=== PATIENT | female | born 1990 | race Caucasian/White ===

== ENCOUNTER 2017-03-15 15:14 | Day surgery (SDC) | payer BC, OTHER, SELFPAY ==
[2017-03-15] MEDS ORDERED: Sodium Chloride 0.9% 10 ML Syringe FLUSH PRN (16:15)
[2017-03-15] MEDS ORDERED: Ondansetron 4 MG/2 ML SDV IVPUSH ONE ×2 (16:17→18:35)
[2017-03-15] MEDS ORDERED: Iopamidol 755 Mg/ML 75 ML Bottle IV ONE (16:23)
--- NOTE | 2017-03-15 16:34 | EDM.PDOC ---
ED HPI GENERAL MEDICAL PROBLEM - General Chief Complaint: Abdominal Pain Stated Complaint: STOMACH PAINS Time Seen by Provider: 03/15/17 15:14 Source of Information: Reports: Patient, Family (SO) History Limitations: Reports: No Limitations - History of Present Illness INITIAL COMMENTS - FREE TEXT/NARRATIVE: 26 y.o.w.f in prev. health condition, [facility] Feb 20 2017, came to the ed with her SO due to acute RLQ abd. pain at 3 am. it subsided and came back this pm. Pt ate some pizza, which she vomited out out. Pt vomited [employer] as well X 1. It subsided here in the ED. No F/C, no trauma, no prev abd. surgeries. Pt stated she could be . No Dysuria. BP 118/81 Pulse 93 Temp 36.7 RR 18 Pulse ox 98% on RA. Onset: Today Onset Date: 03/15/17 Onset Time: 03:00 Duration: Hour(s):, Getting Worse, Intermittent Location: Reports: Abdomen, Pelvis Quality: Reports: Ache, Dull, Pressure Severity: Moderate Improves with: Reports: Rest Worsens with: Reports: Movement Context: Reports: Other (RLQ abd. pain) Associated Symptoms: Reports: Nausea/Vomiting - Related Data Allergies Allergy/AdvReac Type Severity Reaction Status Date / Time No Known Allergies Allergy Verified 03/15/17 15:30 Home Meds: Home Meds SUMAtriptan 100 mg PO DAILY PRN 03/15/17 [History] Past Medical History HEENT History: Reports: None Neurological History: Reports: Migraines Psychiatric History: Reports: Anxiety, Depression, Suicide Attempt - Infectious Disease History Infectious Disease History: Reports: Chicken Pox - Past Surgical History HEENT Surgical History: Reports: Other (See Below) Other HEENT Surgeries/Procedures: wisdom teeth removed Neurological Surgical History: Reports: None Dermatological Surgical History: Reports: None Social & Family History - Family History Family Medical History: Noncontributory - Tobacco Use Smoking Status *Q: Former Smoker Used Tobacco, but Quit: Yes Month Tobacco Last Used: 5 years Second Hand Smoke Exposure: No - Caffeine Use Caffeine Use: Reports: Coffee, Soda - Alcohol Use Days Per Week of Alcohol Use: 1 Number of Drinks Per Day: 2 Total Drinks Per Week: 2 - Recreational Drug Use Recreational Drug Use: No ED ROS GENERAL - Review of Systems Review Of Systems: See Below Constitutional: Reports: No Symptoms HEENT: Reports: No Symptoms Respiratory: Reports: No Symptoms Cardiovascular: Reports: No Symptoms Endocrine: Reports: No Symptoms GI/Abdominal: Reports: Abdominal Pain (RLQ) : Reports: No Symptoms Musculoskeletal: Reports: No Symptoms Skin: Reports: No Symptoms Neurological: Reports: No Symptoms Psychiatric: Reports: No Symptoms Hematologic/Lymphatic: Reports: No Symptoms Immunologic: Reports: No Symptoms ED EXAM, GI/ABD - Physical Exam Exam: See Below Exam Limited By: No Limitations General Appearance: Alert, WD/WN, Mild Distress Eyes: Bilateral: Normal Appearance Ears: Normal External Exam Nose: Normal Inspection Throat/Mouth: Normal Inspection Head: Atraumatic, Normocephalic Neck: Normal Inspection, Supple, Non-Tender, Full Range of Motion Respiratory/Chest: No Respiratory Distress, Lungs Clear, Normal Breath Sounds, No Accessory Muscle Use, Chest Non-Tender Cardiovascular: Normal Peripheral Pulses, Regular Rate, Rhythm, No Edema, No Gallop, No JVD, No Murmur, No Rub GI/Abdominal Exam: Normal Bowel Sounds, No Organomegaly, Tender (RLQ abd.pain/ tenderness/guarding) (Female) Exam: Deferred Rectal (Female) Exam: Deferred Back Exam: Normal Inspection, Full Range of Motion Extremities: Normal Inspection, Normal Range of Motion, Non-Tender, No Pedal Edema Neurological: Alert, Oriented, CN II-XII Intact, Normal Cognition, Normal Gait Psychiatric: Normal Affect, Normal Mood Skin Exam: Warm, Dry, Intact, Normal Color, No Rash Lymphatic: No Adenopathy Course - Vital Signs Text/Narrative:: 26 y.o.w.f in prev. health condition, [facility] Feb 20 2017, came to the ed with her SO due to acute RLQ abd. pain at 3 am. it subsided and came back this pm. Pt ate some pizza, which she vomited out out. Pt vomited [employer] as well X 1. It subsided here in the ED. No F/C, no trauma, no prev abd. surgeries. Pt stated she could be . No Dysuria. BP 118/81 Pulse 93 Temp 36.7 RR 18 Pulse ox 98% on RA. PE: WNWD very pleasant WF c/o RLQ abd. pain. Labs: CBC showed a WBC of 13.5, BMP was nl HCG neg. UA neg INR 1.02 Imaging: CT abd/pelvis: Acute appy, left ovarian Cyst, hemorrhagic. Impression: Acute appy Tx: Cefoxitin 1 gm i.v. Refused Zofran. refused pain meds. LR 125 cc/hr 5.41 pm Consultation: Dr. Chowdhury, Surgeon: Call crew in for surgery Plan: Appendectomy, then admit to argueta for obs to Dr. hCowdhury Last Recorded V/S: Last Vital Signs Temp 36.9 C 03/15/17 17:12 Pulse 99 03/15/17 17:12 Resp 18 03/15/17 17:12 BP 111/70 03/15/17 17:12 Pulse Ox 100 03/15/17 17:12 - Orders/Labs/Meds Orders: Active Orders 24 hr Category Date Time Status Communication Order [RC] ASDIRECTED Care 03/15/17 18:25 Ordered Cooling Warming Measures [RC] ASDIRECTED Care 03/15/17 18:25 Ordered Notify Provider [RC] PRN Care 03/15/17 18:25 Ordered Oxygen Therapy [RC] ASDIRECTED Care 03/15/17 18:25 Ordered Vital Signs [RC] PER UNIT ROUTINE Care 03/15/17 18:25 Active Abdomen Pelvis w Cont [CT] Stat Exams 03/15/17 16:13 Ordered Albuterol [Proventil Neb Soln] Med 03/15/17 18:24 Ordered 2.5 mg NEB ONETIME PRN HYDROmorphone [Dilaudid] Med 03/15/17 18:24 Ordered 0.2 mg IV Q10M PRN HYDROmorphone [Dilaudid] Med 03/15/17 18:24 Ordered 0.2 mg IVPUSH Q10M PRN Lactated Ringers @ KVO(1000ml) Med 03/15/17 18:30 Ordered Lactated Ringers [Ringers, Lactated] 1,000 ml IV ASDIRECTED Lactated Ringers [Ringers, Lactated] 1,000 ml Med 03/15/17 18:30 Active IV ASDIRECTED Naloxone [Narcan] Med 03/15/17 18:24 Ordered 0.2 mg IVPUSH Q1M PRN Ondansetron [Zofran] Med 03/15/17 18:24 Ordered 4 mg IVPUSH ONETIME PRN Promethazine [Phenergan] Med 03/15/17 18:24 Ordered 12.5 mg IM Q4H PRN Sodium Chloride 0.9% @ 125 MLS/HR (1000ml) Med 03/15/17 18:00 Ordered Sodium Chloride 0.9% [Normal Saline] 1,000 ml IV ASDIRECTED Sodium Chloride 0.9% [Saline Flush] Med 03/15/17 16:15 Active 10 ml FLUSH ASDIRECTED PRN diphenhydrAMINE [Benadryl] Med 03/15/17 18:24 Ordered 25 mg IVPUSH ONETIME PRN fentaNYL [Sublimaze] Med 03/15/17 18:24 Ordered 50 mcg IVPUSH Q5M PRN Patient May [OM.PC] Click to Edit Oth 03/15/17 18:25 Ordered Peripheral IV Insertion Adult [OM.PC] Routine Oth 03/15/17 16:15 Ordered Medication Orders Albuterol (Proventil Neb Soln) 2.5 mg NEB ONETIME PRN PRN Reason: Wheezing Diphenhydramine HCl (Benadryl) 25 mg IVPUSH ONETIME PRN PRN Reason: Itching Fentanyl (Sublimaze) 50 mcg IVPUSH Q5M PRN PRN Reason: Pain (severe 7-10) Hydromorphone HCl (Dilaudid) 0.2 mg IVPUSH Q10M PRN PRN Reason: Pain (moderate 4-6) Hydromorphone HCl (Dilaudid) 0.2 mg IV Q10M PRN PRN Reason: Pain (severe 7-10) Sodium Chloride (Normal Saline) 1,000 mls @ 125 mls/hr IV ASDIRECTED NELLIE Lactated Ringer's (Ringers, Lactated) 1,000 mls @ 125 mls/hr IV ASDIRECTED NELLIE Lactated Ringer's (Ringers, Lactated) 1,000 mls @ 0 mls/hr IV ASDIRECTED NELLIE PRN Reason: KVO Naloxone HCl (Narcan) 0.2 mg IVPUSH Q1M PRN PRN Reason: Respiratory Depression Ondansetron HCl (Zofran) 4 mg IVPUSH ONETIME PRN PRN Reason: Nausea/Vomiting Promethazine HCl (Phenergan) 12.5 mg IM Q4H PRN PRN Reason: Nausea/Vomiting Sodium Chloride (Saline Flush) 10 ml FLUSH ASDIRECTED PRN PRN Reason: Keep Vein Open Labs: Laboratory Tests 03/15/17 03/15/17 03/15/17 Range/Units 15:40 15:40 15:40 WBC 13.5 H (4.5-12.0) X10-3/uL RBC 4.30 (3.23-5.20) x10(6)uL Hgb 14.1 (11.5-15.5) g/dL Hct 40.1 (30.0-51.3) % MCV 93.3 (80-96) fL MCH 32.7 (27.7-33.6) pg MCHC 35.1 (32.2-35.4) g/dL RDW 12.8 (11.5-15.5) % Plt Count 290 (125-369) X10(3)uL MPV 8.3 (7.4-10.4) fL Add Manual Diff Yes Neutrophils % (Manual) 87 H (46-82) % Band Neutrophils % 2 (0-6) % Lymphocytes % (Manual) 6 L (13-37) % Monocytes % (Manual) 5 (4-12) % PT 10.3 (8.7-11.1) INR 1.02 (0.89-1.13) Sodium 138 (135-145) mmol/L Potassium 3.7 (3.5-5.3) mmol/L Chloride 102 (100-110) mmol/L Carbon Dioxide 25 (21-32) mmol/L BUN 13 (7-18) mg/dL Creatinine 0.8 (0.55-1.02) mg/dL Est Cr Clr Drug Dosing TNP Estimated GFR (MDRD) > 60 (>60) BUN/Creatinine Ratio 16.3 (9-20) Glucose 103 (80-116) mg/dL Calcium 9.5 (8.6-10.2) mg/dL Urine Color (YELLOW) Urine Appearance (CLEAR) Urine pH (5.0-6.5) Ur Specific [place] (1.010-1.025) Urine Protein (NEGATIVE) mg/dL Urine Glucose (UA) (NEGATIVE) mg/dL Urine Ketones (NEGATIVE) mg/dL Urine Occult Blood (NEGATIVE) Urine Nitrite (NEGATIVE) Urine Bilirubin (NEGATIVE) Urine Urobilinogen (NEGATIVE) mg/dL Ur Leukocyte Esterase (NEGATIVE) Urine RBC (0) Urine WBC (0) Ur Squamous Epith Cells (NS,R,O) Urine Bacteria (NS) Urine HCG, Qual (NEGATIVE) 03/15/17 03/15/17 Range/Units 15:54 15:54 WBC (4.5-12.0) X10-3/uL RBC (3.23-5.20) x10(6)uL Hgb (11.5-15.5) g/dL Hct (30.0-51.3) % MCV (80-96) fL MCH (27.7-33.6) pg MCHC (32.2-35.4) g/dL RDW (11.5-15.5) % Plt Count (125-369) X10(3)uL MPV (7.4-10.4) fL Add Manual Diff Neutrophils % (Manual) (46-82) % Band Neutrophils % (0-6) % Lymphocytes % (Manual) (13-37) % Monocytes % (Manual) (4-12) % PT (8.7-11.1) INR (0.89-1.13) Sodium (135-145) mmol/L Potassium (3.5-5.3) mmol/L Chloride (100-110) mmol/L Carbon Dioxide (21-32) mmol/L BUN (7-18) mg/dL Creatinine (0.55-1.02) mg/dL Est Cr Clr Drug Dosing Estimated GFR (MDRD) (>60) BUN/Creatinine Ratio (9-20) Glucose (80-116) mg/dL Calcium (8.6-10.2) mg/dL Urine Color Yellow (YELLOW) Urine Appearance Clear (CLEAR) Urine pH 8.0 H (5.0-6.5) Ur Specific [place] 1.010 (1.010-1.025) Urine Protein Negative (NEGATIVE) mg/dL Urine Glucose (UA) Normal (NEGATIVE) mg/dL Urine Ketones Negative (NEGATIVE) mg/dL Urine Occult Blood Negative (NEGATIVE) Urine Nitrite Negative (NEGATIVE) Urine Bilirubin Negative (NEGATIVE) Urine Urobilinogen Normal (NEGATIVE) mg/dL Ur Leukocyte Esterase Negative (NEGATIVE) Urine RBC 0-5 (0) Urine WBC 0-5 (0) Ur Squamous Epith Cells Occasional (NS,R,O) Urine Bacteria Few H (NS) Urine HCG, Qual Negative (NEGATIVE) Meds: Medications Generic Name Dose Route Start Last Admin Trade Name Freq PRN Reason Stop Dose Admin Albuterol 2.5 mg 03/15/17 18:24 Proventil Neb Soln NEB ONETIME PRN Wheezing Diphenhydramine HCl 25 mg 03/15/17 18:24 Benadryl IVPUSH ONETIME PRN Itching Fentanyl 50 mcg 03/15/17 18:24 Sublimaze IVPUSH Q5M PRN Pain (severe 7-10) Hydromorphone HCl 0.2 mg 03/15/17 18:24 Dilaudid IVPUSH Q10M PRN Pain (moderate 4-6) Hydromorphone HCl 0.2 mg 03/15/17 18:24 Dilaudid IV Q10M PRN Pain (severe 7-10) Sodium Chloride 1,000 mls @ 125 mls/hr 03/15/17 18:00 Normal Saline IV ASDIRECTED NELLIE Lactated Ringer's 1,000 mls @ 125 mls/hr 03/15/17 18:30 Ringers, Lactated IV ASDIRECTED NELLIE Lactated Ringer's 1,000 mls @ 0 mls/hr 03/15/17 18:30 Ringers, Lactated IV ASDIRECTED NELLIE KVO Naloxone HCl 0.2 mg 03/15/17 18:24 Narcan IVPUSH Q1M PRN Respiratory Depression Ondansetron HCl 4 mg 03/15/17 18:24 Zofran IVPUSH ONETIME PRN Nausea/Vomiting Promethazine HCl 12.5 mg 03/15/17 18:24 Phenergan IM Q4H PRN Nausea/Vomiting Sodium Chloride 10 ml 03/15/17 16:15 Saline Flush FLUSH ASDIRECTED PRN Keep Vein Open Discontinued Medications Generic Name Dose Route Start Last Admin Trade Name Freq PRN Reason Stop Dose Admin Piperacillin Sod/Tazobactam 50 mls @ 100 mls/hr 03/15/17 17:45 Sod 3.375 gm/ Sodium Chloride IV Q6H NELLIE Cefoxitin Sodium 1 gm/ Premix 50 mls @ 100 mls/hr 03/15/17 17:54 03/15/17 18: 30 IV 03/15/17 18:23 100 mls/hr ONETIME ONE Administration Cefoxitin Sodium Confirm 03/15/17 17:58 03/15/17 18:16 Mefoxin In Dextrose,Iso-Osm 1 Gm/50 Ml Administered 03/15/17 17:59 Not Given Dose 50 mls @ as directed .ROUTE .STK-MED ONE Iopamidol 60 ml 03/15/17 16:23 03/15/17 16:51 Isovue-370 (76%) IV 03/15/17 16:24 60 ml ONETIME ONE Administration Ondansetron HCl 8 mg 03/15/17 16:17 03/15/17 17:16 Zofran IVPUSH 03/15/17 16:18 Not Given ONETIME ONE Departure - Departure Time of Disposition: 18:37 Disposition: Refer to Observation Condition: Fair Clinical Impression: S/P laparoscopic appendectomy - Discharge Information - My Orders Last 24 Hours: My Active Orders 03/15/17 16:13 Abdomen Pelvis w Cont [CT] Stat 03/15/17 16:15 Sodium Chloride 0.9% [Saline Flush] 10 ml FLUSH ASDIRECTED PRN Peripheral IV Insertion Adult [OM.PC] Routine 03/15/17 18:00 Sodium Chloride 0.9% @ 125 MLS/HR (1000ml) Sodium Chloride 0.9% [Normal Saline] 1,000 ml IV ASDIRECTED 03/15/17 18:30 Lactated Ringers [Ringers, Lactated] 1,000 ml IV ASDIRECTED - Assessment/Plan Last 24 Hours: My Active Orders 03/15/17 16:13 Abdomen Pelvis w Cont [CT] Stat 03/15/17 16:15 Sodium Chloride 0.9% [Saline Flush] 10 ml FLUSH ASDIRECTED PRN Peripheral IV Insertion Adult [OM.PC] Routine 03/15/17 18:00 Sodium Chloride 0.9% @ 125 MLS/HR (1000ml) Sodium Chloride 0.9% [Normal Saline] 1,000 ml IV ASDIRECTED 03/15/17 18:30 Lactated Ringers [Ringers, Lactated] 1,000 ml IV ASDIRECTED
[2017-03-15] MEDS ORDERED: Piperacillin/Tazobactam 3.375 GM in Sodium Chloride 0.9% 50 ML IV SCH (17:45)
[2017-03-15] MEDS ORDERED: cefOXitin 1 GM in Premix Bag 1 BAG IV ONE (17:54)
[2017-03-15] MEDS ORDERED: Sodium Chloride 0.9% 1,000 ML IV SCH (18:00)
[2017-03-15] MEDS ORDERED: Promethazine 25 MG/ML SDV IM PRN (18:24)
[2017-03-15] MEDS ORDERED: fentaNYL 100 MCG/2 ML SDV IVPUSH PRN (18:24)
[2017-03-15] MEDS ORDERED: Albuterol 0.083% 2.5 MG/3 ML Neb Soln NEB PRN (18:24)
[2017-03-15] MEDS ORDERED: HYDROmorphone 2 MG/ML SDV IV PRN (18:24)
[2017-03-15] MEDS ORDERED: diphenhydrAMINE 50 MG/ML SDV IVPUSH PRN (18:24)
[2017-03-15] MEDS ORDERED: HYDROmorphone 2 MG/ML SDV IVPUSH PRN (18:24)
[2017-03-15] MEDS ORDERED: Ondansetron 4 MG/2 ML SDV IVPUSH PRN ×2 (18:24→19:31)
[2017-03-15] MEDS ORDERED: Naloxone 0.4 MG/ML SDV IVPUSH PRN (18:24)
[2017-03-15] MEDS ORDERED: Lactated Ringers 1,000 ML IV SCH ×3 (18:30→19:45)
[2017-03-15] MEDS ORDERED: Dexamethasone 4 MG/ML 5 ML MDV IVPUSH ONE (18:35)
[2017-03-15] MEDS ORDERED: Ketorolac 30 MG/ML SDV IVPUSH ONE (18:35)
[2017-03-15] MEDS ORDERED: Midazolam 1 MG/ML 2 ML SDV IV ONE (18:35)
[2017-03-15] MEDS ORDERED: Rocuronium 100 MG/10 ML MDV IV ONE (18:35)
[2017-03-15] MEDS ORDERED: ceFAZolin 1 GM Vial IV ONE (18:35)
[2017-03-15] MEDS ORDERED: Succinylcholine 200 MG/10 ML MDV IV ONE (18:35)
[2017-03-15] MEDS ORDERED: Neostigmine Methylsulfate 10 MG/10 ML MDV IVPUSH ONE (18:35)
[2017-03-15] MEDS ORDERED: Propofol 200 MG/20 ML SDV IV ONE (18:35)
[2017-03-15] MEDS ORDERED: Lactated Ringers 1,000 ML IV ONE (18:35)
[2017-03-15] MEDS ORDERED: fentaNYL 100 MCG/2 ML SDV IV ONE (18:35)
[2017-03-15] MEDS ORDERED: HYDROmorphone 2 MG/ML SDV IV ONE (18:35)
[2017-03-15] MEDS ORDERED: Bupivacaine 0.5%/EPINEPHrine 1:200,000 50 ML MDV ONE (18:52)
[2017-03-15] MEDS ORDERED: Morphine 2 MG/ML Syringe IVPUSH PRN (19:31)
[2017-03-15] MEDS ORDERED: Acetaminophen/HYDROcodone 325-5 MG Tab PO PRN ×2 (19:31)
--- NOTE | 2017-03-15 19:31 | PCM.OPNOTE ---
- General Post-Op/Procedure Note Date of Surgery/Procedure: 03/15/17 Operative Procedure(s): Appendectomy Findings: Acutely inflamed but not ruptured appendix Pre Op Diagnosis: Acute Appendicitis Post-Op Diagnosis: Same Anesthesia Technique: General ET Tube Primary Surgeon: Pieter Chowdhury Pathology: Appendix Output, Urine Amount: 0 EBL in mLs: 25 Complications: None Condition: Fair
--- NOTE | 2017-03-15 23:11 | ER ---
DATE OF CONSULTATION: 03/15/2017 HISTORY OF PRESENT ILLNESS: This 26-year-old female presents to the emergency room today with persistent abdominal pain. She states this pain began approximately 0330 this morning. It was across her mid abdomen, slightly more on the right side than the left. It has persisted and gradually intensified throughout the day remaining generally in that same location. She has had associated with this 2 episodes of vomiting. The pain intensified to the point where she presented to the emergency room for evaluation. While in the emergency room, investigation has identified laboratory studies showing an elevated serum white blood cell count of 13,500 with 87% segs and 2% bands. Her urinalysis is unremarkable. Her urine test is negative. The patient also underwent a CT scan of the abdomen and this was interpreted as showing findings consistent with acute appendicitis without abscess or evidence of perforation. PAST MEDICAL HISTORY: The patient's past medical history notes only previous surgery was wisdom teeth removal performed under local anesthesia. MEDICATIONS: She is currently only taking sumatriptan p.r.n. for migraine headaches, although she has been on some other medication for anxiety and depression in the recent past. She stopped these about 2 weeks ago since she is trying to become . ALLERGIES: She has no known drug allergies. FAMILY HISTORY: Negative for any known anesthetic complications or bleeding disorders. 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 REVIEW OF SYSTEMS: On system review, she notes mild intermittent sore throat over the last month, but has not had any severe cough, cold, or other sore throat symptoms. She has not had chest pain or palpitations. No difficulty voiding. Her last menstrual period was in the early part of February and she says it was a normal for her. As noted, she has been trying to become recently. She notes some arthritic pain in her neck, but otherwise does not suffer from a lot of arthritis pain or extremity pain or swelling. PHYSICAL EXAMINATION: VITAL SIGNS: Temperature is 98.5, pulse 99, blood pressure is 111/70. The patient's stated weight is 117 pounds. GENERAL: She is an adult female. She is currently in no acute distress. HEENT: Her head is normocephalic. There is no scleral icterus. NECK: Her neck is supple. I do not feel any cervical masses or cervical lymphadenopathy. No thyroid enlargement or nodularity. No carotid bruits are heard. HEART: Her heart is regular without murmur. LUNGS: Clear. Breath sounds are equal. There is no wheezing. She has no CVA tenderness to percussion. ABDOMEN: Her abdomen is currently soft without distention. I do not feel any abdominal masses, but the patient has mild generalized tenderness and moderate tenderness to direct palpation in the right lower quadrant with some mild guarding. EXTREMITIES: Show no calf tenderness or ankle edema. NEUROLOGIC: Grossly normal. IMPRESSION: Acute appendicitis. PLAN: The patient will be admitted for laparoscopic appendectomy. I have discussed the proposed operative procedure with the patient. I reviewed with her indications, risks, and possible complications such as but not limited to bleeding, infection, organ injury, and other diagnoses. The anticipated postop restrictions are reviewed and alternatives of surgery were also discussed. She appears to understand and agrees to proceed. /[id number] ABDI/VASHTI
--- NOTE | 2017-03-16 00:40 | OR ---
DATE OF OPERATION: 03/15/2017 SURGEON: Pieter Chowdhury MD PREOPERATIVE DIAGNOSIS: Acute appendicitis. POSTOPERATIVE DIAGNOSIS: Acute appendicitis. OPERATION PERFORMED: Laparoscopic appendectomy. INDICATIONS FOR SURGERY: This 26-year-old female presented with a greater than 12-hour history of abdominal pain. She had tenderness on abdominal exam in the right lower quadrant, and elevated serum and white blood cell count, and CT scan findings consistent with acute appendicitis. FINDINGS: The patient's appendix was acutely inflamed. It was indurated and dilated along its entire length. There was some hyperemia of the appendix near its junction with the cecum and a small amount of exudate in this area, but there was no evidence of perforation and the adjacent cecum appeared normal. No other abnormalities were noted on intraabdominal examination. There was no indication of appendiceal perforation. PROCEDURE IN DETAIL: The patient was taken to the operating room. She was given general endotracheal anesthesia and the abdomen was sterilely prepped and draped. An infraumbilical stab wound incision was made. Through this, a Veress needle was inserted and pneumoperitoneum via this needle to a pressure of 15 mmHg was achieved with carbon dioxide. The Veress needle was then replaced with a 5 mm trocar, into which a 5 mm variable angled laparoscopic camera was inserted. Under direct visualization, a 12 mm trocar was placed in the suprapubic midline and another 5 mm trocar was placed in the right lower quadrant. All trocar sites were infiltrated with Marcaine prior to incision. Intraabdominal and pelvic inspection was carried out and then attention was turned to the appendix. It was exposed and then secured with grasping forceps. Blunt dissection was then used to create a small window in the mesoappendix adjacent to the cecum. Utilizing this window, an Endo-RAGHAV with 2.5 mm staple length was then fired across the appendiceal cecal junction. This divided the appendix from the cecum. Careful inspection of the cecal staple line showed it to be intact and of good quality. An additional firing of the stapler with the same staple length was then carried out across the mesoappendix. This completely freed the appendix, which was then placed into an Endo retrieval bag and extracted through the largest trocar site. Reinspection of the operative region was performed. Copious irrigation of this area was carried out and careful inspection showed no sign of any bleeding or any other complication. The pneumoperitoneum was then evacuated and the trocars were removed under direct visualization. The fascia of the largest trocar site was closed with a [id number] Vicryl suture. Wounds were irrigated with Betadine and saline solution. Skin incisions were approximated with interrupted 4-0 Vicryl in a subcuticular stitch. Steri-Strips and benzoin were then applied. Antibiotic ointment and sterile dressings were placed. The patient was awakened, extubated, and taken from the operating room in satisfactory condition. ESTIMATED BLOOD LOSS: 25 mL. COMPLICATIONS: None. PROGNOSIS: Good. /[id number] ABDI/VASHTI
[2017-03-16] MEDS: cefOXitin 1 GM in Premix Bag 1 BAG IV SCH ×3 (05:56)
--- NOTE | 2017-03-16 06:48 | PCM.SURGPN ---
- General Info Date of Service: 03/16/17 Date of Surgery/Procedure: 03/15/17 POD#: 1 Post-Op Diagnosis: Acute Appendicitis Functional Status: Reports: Pain Controlled - Review of Systems General: Denies: Fever Pulmonary: Reports: No Symptoms Gastrointestinal: Denies: Nausea, Vomiting - Patient Data Vitals - Most Recent: Last Vital Signs Temp 98.0 F 03/16/17 04:00 Pulse 93 03/16/17 04:00 Resp 16 03/16/17 04:00 BP 90/56 L 03/16/17 04:00 Pulse Ox 97 03/16/17 04:00 Weight - Most Recent: 117 lb I&O - Last 24 Hours: Intake & Output 03/15/17 03/15/17 03/16/17 14:59 22:59 06:59 Intake Total 1290 Output Total 200 300 Balance -200 990 Lab Results Last 24 Hrs: Laboratory Results - last 24 hr 03/15/17 03/15/17 03/15/17 Range/Units 15:40 15:40 15:40 WBC 13.5 H (4.5-12.0) X10-3/uL RBC 4.30 (3.23-5.20) x10(6)uL Hgb 14.1 (11.5-15.5) g/dL Hct 40.1 (30.0-51.3) % MCV 93.3 (80-96) fL MCH 32.7 (27.7-33.6) pg MCHC 35.1 (32.2-35.4) g/dL RDW 12.8 (11.5-15.5) % Plt Count 290 (125-369) X10(3)uL MPV 8.3 (7.4-10.4) fL Add Manual Diff Yes Neutrophils % (Manual) 87 H (46-82) % Band Neutrophils % 2 (0-6) % Lymphocytes % (Manual) 6 L (13-37) % Monocytes % (Manual) 5 (4-12) % PT 10.3 (8.7-11.1) INR 1.02 (0.89-1.13) Sodium 138 (135-145) mmol/L Potassium 3.7 (3.5-5.3) mmol/L Chloride 102 (100-110) mmol/L Carbon Dioxide 25 (21-32) mmol/L BUN 13 (7-18) mg/dL Creatinine 0.8 (0.55-1.02) mg/dL Est Cr Clr Drug Dosing TNP Estimated GFR (MDRD) > 60 (>60) BUN/Creatinine Ratio 16.3 (9-20) Glucose 103 (80-116) mg/dL Calcium 9.5 (8.6-10.2) mg/dL Urine Color (YELLOW) Urine Appearance (CLEAR) Urine pH (5.0-6.5) Ur Specific [place] (1.010-1.025) Urine Protein (NEGATIVE) mg/dL Urine Glucose (UA) (NEGATIVE) mg/dL Urine Ketones (NEGATIVE) mg/dL Urine Occult Blood (NEGATIVE) Urine Nitrite (NEGATIVE) Urine Bilirubin (NEGATIVE) Urine Urobilinogen (NEGATIVE) mg/dL Ur Leukocyte Esterase (NEGATIVE) Urine RBC (0) Urine WBC (0) Ur Squamous Epith Cells (NS,R,O) Urine Bacteria (NS) Urine HCG, Qual (NEGATIVE) 03/15/17 03/15/17 Range/Units 15:54 15:54 WBC (4.5-12.0) X10-3/uL RBC (3.23-5.20) x10(6)uL Hgb (11.5-15.5) g/dL Hct (30.0-51.3) % MCV (80-96) fL MCH (27.7-33.6) pg MCHC (32.2-35.4) g/dL RDW (11.5-15.5) % Plt Count (125-369) X10(3)uL MPV (7.4-10.4) fL Add Manual Diff Neutrophils % (Manual) (46-82) % Band Neutrophils % (0-6) % Lymphocytes % (Manual) (13-37) % Monocytes % (Manual) (4-12) % PT (8.7-11.1) INR (0.89-1.13) Sodium (135-145) mmol/L Potassium (3.5-5.3) mmol/L Chloride (100-110) mmol/L Carbon Dioxide (21-32) mmol/L BUN (7-18) mg/dL Creatinine (0.55-1.02) mg/dL Est Cr Clr Drug Dosing Estimated GFR (MDRD) (>60) BUN/Creatinine Ratio (9-20) Glucose (80-116) mg/dL Calcium (8.6-10.2) mg/dL Urine Color Yellow (YELLOW) Urine Appearance Clear (CLEAR) Urine pH 8.0 H (5.0-6.5) Ur Specific [place] 1.010 (1.010-1.025) Urine Protein Negative (NEGATIVE) mg/dL Urine Glucose (UA) Normal (NEGATIVE) mg/dL Urine Ketones Negative (NEGATIVE) mg/dL Urine Occult Blood Negative (NEGATIVE) Urine Nitrite Negative (NEGATIVE) Urine Bilirubin Negative (NEGATIVE) Urine Urobilinogen Normal (NEGATIVE) mg/dL Ur Leukocyte Esterase Negative (NEGATIVE) Urine RBC 0-5 (0) Urine WBC 0-5 (0) Ur Squamous Epith Cells Occasional (NS,R,O) Urine Bacteria Few H (NS) Urine HCG, Qual Negative (NEGATIVE) Med Orders - Current: Current Medications Hydrocodone Bitart/Acetaminophen ([place] 325-5 Mg) 1 tab PO Q4H PRN PRN Reason: Pain (mild 1-3) Hydrocodone Bitart/Acetaminophen ([place] 325-5 Mg) 2 tab PO Q4H PRN PRN Reason: Pain (moderate 4-6) Cefoxitin Sodium 1 gm/ Premix 50 mls @ 100 mls/hr IV Q6H [facility] Last Admin: 03/16/17 05:56 Dose: 100 mls/hr Lactated Ringer's (Ringers, Lactated) 1,000 mls @ 100 mls/hr IV ASDIRECTED [facility] Last Admin: 03/16/17 00:01 Dose: 100 mls/hr Morphine Sulfate (Morphine) 2 mg IVPUSH Q1H PRN PRN Reason: Pain (severe 7-10) Ondansetron HCl (Zofran) 4 mg IVPUSH Q6H PRN PRN Reason: Nausea/Vomiting Sodium Chloride (Saline Flush) 10 ml FLUSH ASDIRECTED PRN PRN Reason: Keep Vein Open Discontinued Medications Albuterol (Proventil Neb Soln) 2.5 mg NEB ONETIME PRN PRN Reason: Wheezing Bupivacaine HCl/Epinephrine Bitart (Marcaine 0.5%/Epinephrine 1:200,000) 20 ml .XX .STK-MED ONE Stop: 03/15/17 18:53 Last Admin: 03/15/17 18:52 Dose: 20 ml Diphenhydramine HCl (Benadryl) 25 mg IVPUSH ONETIME PRN PRN Reason: Itching Fentanyl (Sublimaze) 50 mcg IVPUSH Q5M PRN PRN Reason: Pain (severe 7-10) Hydromorphone HCl (Dilaudid) 0.2 mg IVPUSH Q10M PRN PRN Reason: Pain (moderate 4-6) Hydromorphone HCl (Dilaudid) 0.2 mg IV Q10M PRN PRN Reason: Pain (severe 7-10) Piperacillin Sod/Tazobactam (Sod 3.375 gm/ Sodium Chloride) 50 mls @ 100 mls/ hr IV Q6H [facility] Last Admin: 03/15/17 18:52 Dose: Not Given Sodium Chloride (Normal Saline) 1,000 mls @ 125 mls/hr IV ASDIRECTED [facility] Cefoxitin Sodium 1 gm/ Premix 50 mls @ 100 mls/hr IV ONETIME ONE Stop: 03/15/17 18:23 Last Admin: 03/15/17 18:30 Dose: 100 mls/hr Cefoxitin Sodium (Mefoxin In Dextrose,Iso-Osm 1 Gm/50 Ml) Confirm Administered Dose 50 mls @ as directed .ROUTE .STK-MED ONE Stop: 03/15/17 17:59 Last Admin: 03/15/17 18:16 Dose: Not Given Lactated Ringer's (Ringers, Lactated) 1,000 mls @ 125 mls/hr IV ASDIRECTED [facility] Last Admin: 03/15/17 18:30 Dose: 125 mls/hr Lactated Ringer's (Ringers, Lactated) 1,000 mls @ 0 mls/hr IV ASDIRECTED [facility] PRN Reason: KVO Iopamidol (Isovue-370 (76%)) 60 ml IV ONETIME ONE Stop: 03/15/17 16:24 Last Admin: 03/15/17 16:51 Dose: 60 ml Naloxone HCl (Narcan) 0.2 mg IVPUSH Q1M PRN PRN Reason: Respiratory Depression Ondansetron HCl (Zofran) 8 mg IVPUSH ONETIME ONE Stop: 03/15/17 16:18 Last Admin: 03/15/17 17:16 Dose: Not Given Ondansetron HCl (Zofran) 4 mg IVPUSH ONETIME PRN PRN Reason: Nausea/Vomiting Promethazine HCl (Phenergan) 12.5 mg IM Q4H PRN PRN Reason: Nausea/Vomiting - Exam Wound/Incisions: Healing Well. No: Erythema General: Alert, Oriented GI/Abdominal Exam: Soft. No: Distended Extremities: Non-Tender - Problem List Review Problem List Initiated/Reviewed/Updated: Yes - My Orders Last 24 Hours: Active Orders 24 hr Category Date Time Status Patient Status [ADT] Routine ADT 03/15/17 19:31 Active Antiembolic Devices [RC] .Routine Care 03/15/17 19:34 Active Communication Order [RC] ASDIRECTED Care 03/15/17 18:25 Inactive Cooling Warming Measures [RC] ASDIRECTED Care 03/15/17 18:25 Inactive Intake and Output [RC] 06,14,22 Care 03/15/17 19:32 Active Notify Provider [RC] PRN Care 03/15/17 18:25 Active Oxygen Therapy [RC] ASDIRECTED Care 03/15/17 18:25 Inactive Oxygen Therapy [RC] PRN Care 03/15/17 19:31 Active RT Incentive Spirometry [RC] Q1HWA Care 03/15/17 19:31 Active Up ad Ksenia [RC] ASDIRECTED Care 03/15/17 19:31 Active Vital Signs [RC] PER UNIT ROUTINE Care 03/15/17 18:25 Inactive Vital Signs [RC] PER UNIT ROUTINE Care 03/15/17 19:31 Active Clear Liquid Diet [DIET] Diet 03/15/17 Breakfast Ordered Abdomen Pelvis w Cont [CT] Stat Exams 03/15/17 16:13 Taken Acetaminophen/HYDROcodone [[place] 325-5 MG] Med 03/15/17 19:31 Active 1 tab PO Q4H PRN Acetaminophen/HYDROcodone [[place] 325-5 MG] Med 03/15/17 19:31 Active 2 tab PO Q4H PRN Lactated Ringers [Ringers, Lactated] 1,000 ml Med 03/15/17 19:45 Active IV ASDIRECTED Morphine Med 03/15/17 19:31 Active 2 mg IVPUSH Q1H PRN Ondansetron [Zofran] Med 03/15/17 19:31 Active 4 mg IVPUSH Q6H PRN Sodium Chloride 0.9% [Saline Flush] Med 03/15/17 16:15 Active 10 ml FLUSH ASDIRECTED PRN cefOXitin [Mefoxin in Dextrose,Iso-Osm 1 GM/50 ML] 1 gm Med 03/16/17 00:00 Active Premix Bag 1 bag IV Q6H DVT/VTE Prophylaxis Reflex [OM.PC] Per Unit Routine Oth 03/15/17 19:34 Ordered Peripheral IV Insertion Adult [OM.PC] Routine Oth 03/15/17 16:15 Ordered Resuscitation Status Routine Resus Stat 03/15/17 19:31 Ordered Medication Orders Hydrocodone Bitart/Acetaminophen ([place] 325-5 Mg) 1 tab PO Q4H PRN PRN Reason: Pain (mild 1-3) Hydrocodone Bitart/Acetaminophen ([place] 325-5 Mg) 2 tab PO Q4H PRN PRN Reason: Pain (moderate 4-6) Cefoxitin Sodium 1 gm/ Premix 50 mls @ 100 mls/hr IV Q6H [facility] Last Admin: 03/16/17 05:56 Dose: 100 mls/hr Infusion: 03/16/17 00:30 Dose: 100 mls/hr Admin: 03/16/17 00:00 Dose: 100 mls/hr Lactated Ringer's (Ringers, Lactated) 1,000 mls @ 100 mls/hr IV ASDIRECTED [facility] Last Admin: 03/16/17 00:01 Dose: 100 mls/hr Morphine Sulfate (Morphine) 2 mg IVPUSH Q1H PRN PRN Reason: Pain (severe 7-10) Ondansetron HCl (Zofran) 4 mg IVPUSH Q6H PRN PRN Reason: Nausea/Vomiting Sodium Chloride (Saline Flush) 10 ml FLUSH ASDIRECTED PRN PRN Reason: Keep Vein Open - Assessment Assessment (Free Text/Narrative):: POD#1 Appendectomy doing well - Plan Plan (Free Text/Narrative):: Give light food this am and if does well then will go home Rx Hydrocodone for pain No heavy lifting for 3 weeks
[2017-03-16] MEDS ORDERED: SUMAtriptan 50 MG Tab PO PRN (09:00)
== END 2017-03-16 11:25 | disposition home or self-care (01) ==
LOC: FB.ED 15:14 → FB.SDS 17:45 → FB.MS 20:13 → FB.SDS 03-16 11:25
PROVIDERS: ATTEND Surgery
DX: K35.80 Unspecified acute appendicitis (principal); G43.909 Migraine, unspecified, not intractable, without status migrainosus; F41.9 Anxiety disorder, unspecified; F32.9 Major depressive disorder, single episode, unspecified; Z91.5 Personal history of self-harm; Z87.891 Personal history of nicotine dependence; Z79.899 Other long term (current) drug therapy
CPT/HCPCS: 36415; 44970; 74177; 80048; 81001; 81025; 85025; 85610; 88304; 96374; 99285; A9270; J0330; J0690; J0694; J1100; J1170; J1885; J2250; J2405; J2704; J2710; J3010; J7120; Q9967

== ENCOUNTER 2017-04-01 20:41 | Emergency (ER) | payer BC ==
--- NOTE | 2017-04-02 10:59 | ER ---
DATE SEEN: 04/01/2017 TIME SEEN: The patient was seen at 2225 hours. HISTORY OF PRESENT ILLNESS: This 26-year-old 3, para 2-0-0-2, with 5 to 6 weeks' gestation, started spotting this morning. She had intercourse yesterday. Spotting is slightly worse this evening. She denies fever, chills, cough, shortness of breath, or leg pain. She has pelvic pressure. She denies frequency, urgency, or dysuria. Denies GI symptoms of nausea, vomiting, diarrhea, constipation, or blood in the stool. No history of thyroid disease. REVIEW OF SYSTEMS: Negative except as noted above. PHYSICAL EXAMINATION: VITAL SIGNS: Blood pressure 127/80, heart rate 96, respirations 20, oxygen saturation 100%. Weight 54.43 kg. BMI is 22.7 kg/m2. GENERAL: Alert woman, in mild distress, with more anxiety. HEENT: PERRLA intact. Pharynx without abnormality. No thyromegaly. LUNGS: Clear without rales, rhonchi, or wheezes. HEART: S1, S2. No irregularity of rhythm. ABDOMEN: Soft, mild suprapubic discomfort, not extensive. No masses palpable. PELVIC: With clinical nurse therapist's assistant present, pelvic exam was performed. She has mild spotting of blood at the introitus. Parous introitus. Inspection of the cervix suggests a small amount of tissue at the os, 4 mm x 8 mm, but not protruding. heart tone was not seen, gestation sac was not seen on quick- look ultrasound. Uterus appeared to be slightly enlarged. Serum hCG is 1169, which is equivalent to 4 to 5 weeks' gestation. She will need to have that repeated in 2 days to discern if there is any loss of viability, i.e., drop in the hCG. No plans to intervene with any medicine. No suggestion of urinary tract infection, has rare bacteria with 100 rbc's in the urine; the latter is secondary to vaginal bleeding. DIAGNOSIS: First trimester bleed. PLAN: The patient is dismissed to follow up with doctor in 2 days to get a urine hCG. Otherwise, follow up with a doctor next week. /[id number] RON/VASHTI DELGADOD
== END 2017-04-01 23:15 | disposition home or self-care (01) ==
LOC: FB.ED 20:41
DX: O26.851 Spotting complicating pregnancy, first trimester (principal); Z3A.01 Less than 8 weeks gestation of pregnancy
CPT/HCPCS: 36415; 81001; 84702; 99282

== ENCOUNTER 2017-12-31 06:37 | Inpatient (IN) | payer BC ==
[2017-12-31] MEDS ORDERED: Sodium Chloride 0.9% 10 ML Syringe FLUSH PRN (07:48)
[2017-12-31] MEDS: Lactated Ringers 1,000 ML IV SCH ×3 (08:14→16:01)
[2017-12-31] MEDS ORDERED: Morphine PF 10 MG/10 ML SDV ONE (09:12)
[2017-12-31] MEDS ORDERED: Bupivacaine 0.75%/D5W 2 ML Amp ISPINAL ONE (09:12)
[2017-12-31] MEDS ORDERED: fentaNYL 100 MCG/2 ML SDV ITHECAL ONE (09:12)
[2017-12-31] MEDS ORDERED: EPINEPHrine 1 MG/ML SDV IV ONE (09:12)
[2017-12-31] MEDS ORDERED: Scopolamine 1.5 MG Transdermal Patch ONE (09:17)
[2017-12-31] MEDS ORDERED: Ondansetron 4 MG/2 ML SDV IVPUSH PRN (09:38)
[2017-12-31] MEDS ORDERED: Naloxone 0.4 MG/ML SDV IVPUSH PRN (09:38)
[2017-12-31] MEDS ORDERED: diphenhydrAMINE 50 MG/ML SDV IV PRN (09:38)
[2017-12-31] MEDS ORDERED: ePHEDrine 50 MG/ML SDV IVPUSH PRN (09:38)
[2017-12-31] MEDS ORDERED: Scopolamine 1.5 MG Transdermal Patch TOP ONE ×2 (09:38→09:39)
[2017-12-31] MEDS ORDERED: diphenhydrAMINE 50 MG/ML SDV IVPUSH PRN (09:38)
[2017-12-31] MEDS ORDERED: Famotidine/Normal Saline 20 MG in Premix Bag 1 BAG IV PRN (09:38)
[2017-12-31] MEDS ORDERED: Promethazine 6.25 MG in Sodium Chloride 0.9% 50 ML IV PRN (09:38)
[2017-12-31] MEDS ORDERED: Promethazine 12.5 MG in Sodium Chloride 0.9% 50 ML IV PRN (09:38)
[2017-12-31] MEDS ORDERED: Nalbuphine 10 MG/1 ML Vial IVPUSH PRN (09:38)
[2017-12-31] MEDS ORDERED: Naltrexone 50 MG Tab PO PRN (09:38)
[2017-12-31] MEDS ORDERED: Lactated Ringers 500 ML IV SCH ×2 (09:45)
--- NOTE | 2017-12-31 09:58 | PCM.SN ---
- Free Text/Narrative Note: Subjective-This a 27-year-old G3 para 2 EDC of 12/23/17 which measured 39 weeks 1 /7 days. Comes in in labor. Group B negative. Objective-Pilar tones are reactive. Cervix is 6/100/-1 Assessment multipara in active labor Plan-she was given an intrathecal. After that did AROM with clear fluids. Anticipate vaginal delivery.
[2017-12-31] MEDS ORDERED: SUMAtriptan 50 MG Tab PO PRN (10:56)
[2017-12-31] MEDS ORDERED: Acetaminophen/Codeine 300-30 MG Tab PO PRN (10:57)
--- NOTE | 2017-12-31 11:04 | PCM.DEL ---
L & D Note - General Info Date of Service: 12/31/17 - Delivery Note Labor: Spontaneous Delivery Outcome: Livebirth Presentation: Left Occiput Anterior (ALEENA) Nuchal Cord: None Anesthesia Type: Intrathecal Amniotic Fluid Description: Clear Episiotomy Type: None Laceration: None Placenta: Intact Cord: 3 Vessels Delivery Comments (Free Text/Narrative):: 27-year-old 39 weeks and 1/7 comes in spontaneous labor. Delivers a healthy girl and the ALEENA position. No nuchal cord. Vaginal bleeding a little over 500 mL. Normal was orders - General Info Date of Service: 12/31/17 - Review of Systems General: Reports: No Symptoms Gastrointestinal: Reports: No Symptoms Genitourinary: Reports: No Symptoms - Patient Data Weight - Most Recent: 150 lb Med Orders - Current: Current Medications Diphenhydramine HCl (Benadryl) 25 mg IVPUSH ASDIRECTED PRN PRN Reason: EXTRAPYRAMIDAL SIDE EFFECTS Diphenhydramine HCl (Benadryl) 25 mg IV ASDIRECTED PRN PRN Reason: PRURITUS Ephedrine Sulfate (Ephedrine Sulfate) 0 mg IVPUSH ASDIRECTED PRN PRN Reason: Hypotension Lactated Ringer's (Ringers, Lactated) 1,000 mls @ 125 mls/hr IV ASDIRECTED [facility] Last Admin: 12/31/17 08:14 Dose: 125 mls/hr Famotidine 20 mg/ Premix 50 mls @ 100 mls/hr IV ONETIME PRN PRN Reason: PRURITIS Lactated Ringer's (Ringers, Lactated) 500 mls @ 999 mls/hr IV .SEECOMMENT [facility] Lactated Ringer's (Ringers, Lactated) 500 mls @ 999 mls/hr IV .BOLUS NELLIE Promethazine HCl 6.25 mg/ (Sodium Chloride) 50.25 mls @ 200 mls/hr IV Q4H PRN PRN Reason: Nausea/Vomiting Promethazine HCl 12.5 mg/ (Sodium Chloride) 50.5 mls @ 200 mls/hr IV Q4H PRN PRN Reason: Nausea/Vomiting Miscellaneous Information (Remove Patch) 1 ea TRDERM ASDIRECTED PRN PRN Reason: SCOP PATCH - SEE INSTRUCTIONS Nalbuphine HCl (Nubain) 10 mg IVPUSH Q1H PRN PRN Reason: PRURITUS Naloxone HCl (Narcan) 0.1 mg IVPUSH ASDIRECTED PRN PRN Reason: Respiratory Depression Naltrexone HCl (Naltrexone) 25 mg PO ASDIRECTED PRN PRN Reason: REVERSAL Ondansetron HCl (Zofran) 4 mg IVPUSH Q4H PRN PRN Reason: Nausea/Vomiting Sodium Chloride (Saline Flush) 10 ml FLUSH ASDIRECTED PRN PRN Reason: Keep Vein Open Sumatriptan Succinate (Imitrex) 100 mg PO DAILY PRN PRN Reason: Migraine Discontinued Medications Scopolamine (Transderm-Scop) Confirm Administered Dose 1.5 mg .ROUTE .STK-MED ONE Stop: 12/31/17 09:18 Scopolamine (Transderm-Scop) 1.5 mg TOP ONETIME ONE Stop: 12/31/17 09:39 - Exam General: Alert, Oriented Neck: Supple - Problem List & Annotations (1) Vaginal delivery SNOMED Code(s): 883254505 Code(s): O80 - ENCOUNTER FOR FULL-TERM UNCOMPLICATED DELIVERY Status: Acute Current Visit: Yes - Problem List Review Problem List Initiated/Reviewed/Updated: Yes - My Orders Last 24 Hours: My Active Orders 12/31/17 07:48 Sodium Chloride 0.9% [Saline Flush] 10 ml FLUSH ASDIRECTED PRN Peripheral IV Insertion Adult [OM.PC] Routine 12/31/17 08:00 Lactated Ringers [Ringers, Lactated] 1,000 ml IV ASDIRECTED 12/31/17 10:56 SUMAtriptan [SUMAtriptan] 100 mg PO DAILY PRN 12/31/17 10:57 Patient Status [ADT] Routine May Shower [RC] ASDIRECTED Up ad Ravi [RC] ASDIRECTED Vital Signs [RC] PFP Acetaminophen/Codeine [Tylenol with Codeine No.3 300MG/30MG] 1 tab PO Q4H PRN Assess Lochia [WOMSER] Per Unit Routine Assess Uterine Involution [WOMSER] Per Unit Routine Resuscitation Status Routine 12/31/17 10:58 Ice Therapy [OM.PC] Per Unit Routine Perineal Care [OM.PC] Per Unit Routine Peripheral IV Discontinue [OM.PC] Routine 12/31/17 11:00 Ibuprofen [Motrin] 800 mg PO Q8H 12/31/17 Lunch Regular Diet [DIET] 01/01/18 05:11 HEMOGLOBIN/HEMATOCRIT,HH [HEME] AM - Plan Plan:: 1. Regular diet. 2. Admit . 3. Ibuprofen 800 every 8 hours [id number] and Tylenol No. 3 when necessary for pain. 4. Up ad ravi. 5. DC peripheral IV when vitals are stable.
[2017-12-31] MEDS: Ibuprofen 800 MG Tab PO SCH ×2 (11:12→20:00)
[2017-12-31] MEDS ORDERED: Sodium Chloride 0.9% 1,000 ML IV SCH (13:45)
[2017-12-31] MEDS ORDERED: Oxytocin 10 Units/1 ML SDV IM ONE (15:49)
[2017-12-31] MEDS ORDERED: Ibuprofen 800 MG Tab PO PRN (20:48)
== END 2018-01-01 12:25 | disposition home or self-care (01) | DRG 560 ==
LOC: FB.OBCHECK 06:37 → FB.OB 06:38 → FB.OBCHECK 06:47 → FB.OB 06:48 → OBSVTOIN 07:17
PROVIDERS: ADMIT Family Medicine; ATTEND Family Medicine
PROC: 10E0XZZ Delivery of Products of Conception, External Approach (ICD-10-PCS; principal; 2017-12-31)
PROC: 10907ZC Drainage of Amniotic Fluid, Therapeutic from Products of Conception, Via Natural or Artificial Opening (ICD-10-PCS; 2017-12-31)
PROC: 00HU33Z Insertion of Infusion Device into Spinal Canal, Percutaneous Approach (ICD-10-PCS; 2017-12-31)
DX: O80 Encounter for full-term uncomplicated delivery (principal); Z3A.39 39 weeks gestation of pregnancy; Z37.0 Single live birth
CPT/HCPCS: 36415; 59409; 85014; 85018; 99211; A9270-GY; J0171; J2270; J2405; J2590; J3010; J7030; J7120